=== PATIENT | female | born 1995 | race Caucasian/White ===

== ENCOUNTER 2016-12-30 04:50 | Emergency (ER) | payer MEDICAID ==
[~2016-12-30] VITALS: Ht 152.4 cm; Wt 50.4 kg
[2016-12-30 10:29] VITALS: BP 127/69
== END 2016-12-30 10:29 | disposition home or self-care (01) ==
LOC: ED 04:50
DX: R51 Headache (principal); M54.2 Cervicalgia; R50.9 Fever, unspecified; J45.909 Unspecified asthma, uncomplicated; F41.9 Anxiety disorder, unspecified; Z79.1 Long term (current) use of non-steroidal anti-inflammatories (NSAID); Z79.2 Long term (current) use of antibiotics
CPT/HCPCS: J1200; J2765; J7030